=== PATIENT | male | born 1980 | race Caucasian/White ===

== ENCOUNTER 2017-07-11 15:03 | Emergency (ER) | payer BC, OTHER ==
[~2017-07-11] VITALS: Ht 188 cm; Wt 90.7 kg
[2017-07-11 16:18] LABS: HEMATOCRIT 40.6 % (42.0-52.0); HEMOGLOBIN 13.9 gm/dL (14.0-18.0); MCH 29.8 pg (26.0-34.0); MCHC 34.2 g/dL (28.0-37.0); MCV 87.2 fL (80.0-100.0); PLATELET COUNT 251 thou/uL (150-400); RBC 4.65 mil/uL (4.50-6.00); WBC 13.8 thou/uL (4.0-11.0)
[2017-07-11 16:20] LABS: MANUAL DIFF YES
[2017-07-11 16:27] LABS: CALCIUM 9.1 mg/dL (8.5-10.1); CREATININE 1.2 mg/dL (0.7-1.3); POTASSIUM 3.8 mmol/L (3.5-5.1)
[2017-07-11 16:32] LABS: TOTAL BILIRUBIN 0.4 mg/dL (<0.1-1.0); TOTAL PROTEIN 7.9 g/dL (6.4-8.2)
[2017-07-11 16:38] LABS: ABSOLUTE NEUTROPHILS 11.6 thou/uL (1.4-8.2); ATYPICAL LYMPHS 1 %; TOTAL CELL COUNT 100
[2017-07-11 16:39] LABS: ANISOCYTOSIS 1+; POLYCHROMASIA OCCASIONAL
[2017-07-11 16:44] LABS: ALBUMIN 4.1 g/dL (3.4-5.0)
[2017-07-11 18:00] VITALS: BP 142/96
[2017-07-11 18:12] LABS: URINE BILIRUBIN NEGATIVE (Negative); URINE BLOOD TRACE (Negative); URINE COLOR YELLOW; URINE GLUCOSE-RANDOM* NEGATIVE (Negative); URINE KETONES NEGATIVE (Negative); URINE NITRITE NEGATIVE (Negative); URINE PROTEIN (DIPSTICK) NEGATIVE (Negative); URINE SPECIFIC GRAVITY <= 1.005 (1.003-1.035); URINE UROBILINOGEN 0.2 E.U./dl (0.2-1.0)
== END 2017-07-11 18:54 | disposition home or self-care (01) ==
LOC: ER 15:03
PROVIDERS: Physician Assistant
DX: B27.80 Other infectious mononucleosis without complication (principal); R11.0 Nausea; F10.99 Alcohol use, unspecified with unspecified alcohol-induced disorder; Z90.49 Acquired absence of other specified parts of digestive tract